=== PATIENT | female | born 1990 | race Two or more races ===

== ENCOUNTER 2017-05-16 21:19 | Emergency (ER) | payer OTHER ==
[2017-05-16 21:30] VITALS: BP 130/84; PULSE 89; TEMP 98.4; BMI 31.3
--- NOTE | 2017-05-16 22:46 | PDOC ---
History of Present Illness - General Chief Complaint: Pain Stated Complaint: CHEST PAIN Time Seen by Provider: 05/16/17 21:52 History Source: Patient Exam Limitations: No Limitations - History of Present Illness Initial Comments: This is a 26 yo female with h/o 10 days ago with subsequent clinically diagnosed endometritis and 4-days stay in the hospital who presents with RUQ pain and SOB. She notes 3 days of worsening sharp, stabbing right upper abdominal pain which has been radiating to her back today. The pain is currently 6/10 while sitting up or standing, but it worsens to 10/10 while laying down flat. She could not sleep tonight whether flat on her back of laying on her side. She denies any recent nausea, vomiting, diarrhea, constipation, cough, sore throat, painful urination, headache, vision changes, back pain, numbness, tingling, focal weakness, or other recent symptoms of illness. She was released from the hospital (from her with infection) on Thursday. Prior to that, she had been taking Percocet. For the past three days , she has been taking Tylenol for the RUQ pain. For the first two days of symptoms, she was taking 1200 mg Tylenol every 4 hours (including throughout the night). Then this morning, she began taking 1200 mg every 6 hours instead. Past History - Past Medical History Allergies/Adverse Reactions: Allergies Allergy/AdvReac Type Severity Reaction Status Date / Time No Known Allergies Allergy Verified 05/16/17 21:30 Home Medications: Ambulatory Orders Acetaminophen [Pain Reliever] 1,000 mg PO Q6H PRN #18 tablet 09/10/15 Other medical history: denies - Psycho/Social/Smoking Cessation Hx Anxiety: No Suicidal Ideation: No Smoking History: Never smoked Have you smoked in the past 12 months: No Hx Alcohol Use: No Substance Use Type: None *Physical Exam - Vital Signs Last Vital Signs Temp Pulse Resp BP Pulse Ox 98.4 F 89 18 130/84 99 05/16/17 21:26 05/16/17 21:26 05/16/17 21:26 05/16/17 21:26 05/16/17 21:26 - Physical Exam General Appearance: Yes: Nourished, Appropriately Dressed, Mild Distress, Other (alert and talkative but must stop in the middle of long sentences, states she must catch her breath, sitting up in hospital bed) HEENT: positive: EOMI, Normal Voice, Hearing Grossly Normal. negative: Scleral Icterus (R), Scleral Icterus (L), Nasal Congestion Neck: positive: Trachea midline, Supple. negative: Tender, Rigid Respiratory/Chest: positive: Lungs Clear, Normal Breath Sounds. negative: Respiratory Distress, Crackles, Rhonchi, Stridor, Wheezing Cardiovascular: positive: Regular Rhythm, Regular Rate. negative: Murmur Gastrointestinal/Abdominal: positive: Normal Bowel Sounds, Tender (mild RUQ tenderness to palpation without Shultz's sign, no tenderness to McBurney's point ), Soft, Other (Unable to tolerate laying flat on back for abdominal exam (can' t breath)). negative: Organomegaly, Pulsatile Mass, Guarding Musculoskeletal: positive: Normal Inspection. negative: Decreased Range of Motion, Vertebral Tenderness Extremity: positive: Normal Capillary Refill, Normal Inspection, Normal Range of Motion. negative: Tender, Cyanosis Integumentary: positive: Normal Color, Dry, Warm. negative: Erythema, Rash, Bruising Neurologic: positive: customer success associate II-XII NML intact, Fully Oriented, Alert, Normal Mood/ Affect, Normal Response, Motor Strength 5/ ED Treatment Course - LABORATORY CBC & Chemistry Diagram: 05/16/17 22:39 05/16/17 22:39 Medical Decision Making - Medical Decision Making 26 yo female POD #10 from with complication of clinically diagnosed endometritis. P/w RUQ/right lower chest pain and SOB worsened laying down flat. Has been taking amoxicillin for endometritis for the past 7 days. Has been taking Tylenol 1200 mg q4h x2d then 1200 mg q6h for the pain. Exam notable for shallow breathing, also Pt unable to tolerate laying flat d/t difficulty breathing. This case in concerning for PE given the patient's hypercoagulable state from recent . Also considered on the ddx are pericarditis, cholecystitis, hepatitis from APAP OD, pneumothorax, RLL PNA. WBC is 17, Hgb is 9, Plt is 689. Patient is signed out to excellent Dr. Brandt for continued care. *DC/Admit/Observation/Transfer Diagnosis at time of Disposition: Abdominal pain Qualifiers: Abdominal location: right upper quadrant Qualified Code(s): R10.11 - Right upper quadrant pain - Attestations Physician Attestion: 05/17/17 00:15 I, Dr. Sherlyn Larry, attest that this document has been prepared under my direction and personally reviewed by me in its entirety. I further attest, that it accurately reflects all work, treatment, procedures and medical decision -making performed by me.
[2017-05-16 23:12] LABS: BASOPHIL 0.4 % (0-2.0); EOSINOPHIL 3.7 % (0-4.5); MCH 28.3 pg (25.7-33.7); MCHC 32.6 g/dl (32.0-36.0); MEAN CELL VOLUME 86.9 fl (80-96); MEAN PLT VOLUME 7.5 fl (7.5-11.1); NEUTROPHILS 72.9 % (42.8-82.8); PLATELET COUNT 689 K/MM3 (134-434); RDW 15.8 % (11.6-15.6)
[2017-05-16 23:16] LABS: URINE APPEARANCE CLEAR; URINE BILIRUBIN NEGATIVE (NEGATIVE); URINE BLOOD 2+ (NEGATIVE); URINE COLOR LTYELLOW; URINE GLUCOSE (UA) NEGATIVE (NEGATIVE); URINE KETONE NEGATIVE (NEGATIVE); URINE NITRITE NEGATIVE (NEGATIVE); URINE PROTEIN NEGATIVE (NEGATIVE); URINE UROBILINOGEN NEGATIVE mg/dL (0.2-1.0)
[2017-05-16 23:19] LABS: URINE LEUK ESTERASE 1+ (NEGATIVE)
[2017-05-16 23:20] LABS: URINE BACTERIA FEW /hpf (NONE SEEN); URINE MUCUS RARE; URINE RBC 11 /hpf (0-3); URINE WBC 25 /hpf (3-5)
[2017-05-16 23:28] LABS: INR 1.1 (0.82-1.09); PROTHROMBIN TIME (PATIENT) 12.1 SEC (9.98-11.88)
[2017-05-16 23:40] LABS: ALBUMIN 2.1 g/dl (3.4-5.0); ANION GAP 8 (8-16); BILIRUBIN,TOTAL 0.5 mg/dL (0.2-1.0); CALCIUM 8.6 mg/dL (8.5-10.1); CO2 25 mmol/L (21-32); CREATININE 0.8 mg/dL (0.55-1.02); GLUCOSE,RANDOM 82 mg/dL (74-106); SGOT/AST 32 U/L (15-37); SGPT/ALT 21 U/L (12-78); TOT PROT 6.8 g/dl (6.4-8.2)
[2017-05-16 23:41] LABS: ALK PHOS 175 U/L (45-117)
[2017-05-17] MEDS ORDERED: KETOROLAC TROMETHAMINE 30 MG/1 ML VIAL IVPUSH ONE (00:15)
[2017-05-17] MEDS ORDERED: KETOROLAC TROMETHAMINE 30 MG/1 ML VIAL ONE (00:18)
--- NOTE | 2017-05-17 00:49 | PDOC ---
*Physical Exam - Vital Signs Last Vital Signs Temp Pulse Resp BP Pulse Ox 98.4 F 89 18 130/84 99 05/16/17 21:26 05/16/17 21:26 05/16/17 21:26 05/16/17 21:26 05/16/17 21:26 ED Treatment Course - LABORATORY CBC & Chemistry Diagram: 05/16/17 22:39 05/16/17 22:39 - ADDITIONAL ORDERS Additional order review: Laboratory Results 05/16/17 05/16/17 05/16/17 22:39 22:39 22:19 INR 1.10 Sodium 140 Potassium 4.5 Chloride 107 Carbon Dioxide 25 Anion Gap 8 BUN 12 Creatinine 0.8 Creat Clearance w eGFR > 60 Random Glucose 82 Calcium 8.6 Total Bilirubin 0.5 AST 32 ALT 21 Alkaline Phosphatase 175 H Total Protein 6.8 Albumin 2.1 L Urine Color Ltyellow Urine Appearance Clear Urine pH 5.0 Urine Protein Negative Urine Glucose (UA) Negative Urine Ketones Negative Urine Blood 2+ H Urine Nitrite Negative Urine Bilirubin Negative Urine Urobilinogen Negative Ur Leukocyte Esterase 1+ H D Urine RBC 11 Urine WBC 25 Ur Epithelial Cells Rare Urine Bacteria Few Urine Mucus Rare Urine HCG, Qual Positive 05/16/17 22:39 RBC 3.19 L D MCV 86.9 MCHC 32.6 RDW 15.8 H D MPV 7.5 Neutrophils % 72.9 D Lymphocytes % 16.9 D Monocytes % 6.1 Eosinophils % 3.7 D Basophils % 0.4 - Medications Given in the ED: ED Medications Discontinued Medications Generic Name Dose Route Start Last Admin Trade Name Freisaiah PRN Reason Stop Dose Admin Ketorolac Tromethamine 30 mg 05/17/17 00:15 05/17/17 00:26 Toradol Injection - IVPUSH 05/17/17 00:16 30 mg ONCE ONE Administration Medical Decision Making - Medical Decision Making 05/17/17 00:[address] Porras. Current plan is to F/U RUQ pain w/ ultrasound and possible CTA if ultrasound negative. Also F/U on acetaminophen level. 05/17/17 01:38 Ultrasound negative for any pathology per US. 05/17/17 01:39 Acetaminophen level <2. 05/17/17 03:19 CTA negative for PE but showed some hydronephrosis of the L kidney. 05/17/17 04:16 Suspect symptoms are a combination of hydronephrosis, urinary tract infection, and complications. Giving 2mg morphine and hydrating w/ 1L saline. Will repeat cbc at 0530 - if white count has come down will discharge to home with macrobid (3 days) for home treatment. 05/17/17 05:23 05/17/17 05:28 05/17/17 05:59 Patient labs trending towards normal, will discharge to home with instructions to return as needed. *DC/Admit/Observation/Transfer Diagnosis at time of Disposition: Shortness of breath - Discharge Dispostion Disposition: HOME - Referrals Referrals: Clary Begum [Primary Care Provider] - - Patient Instructions Additional Instructions: Please return if your pain symptoms returns or increases. Take antibiotics as directed until completion of course. - Post Discharge Activity - Attestations Physician Attestion: 05/17/17 01:38 I, Dr. Rikki Chambers, attest that this document has been prepared under my direction and personally reviewed by me in its entirety. I further attest, that it accurately reflects all work, treatment, procedures and medical decision -making performed by me.
--- NOTE | 2017-05-17 02:05 | PDOC ---
Attending Attestation - Resident Resident Name: Sherlyn Larry - ED Attending Attestation I have performed the following: I have examined & evaluated the patient, The case was reviewed & discussed with the resident, I agree w/resident's findings & plan, Exceptions are as noted - HPI HPI: 05/17/17 02:04 26-year-old female, 8 days post presents to the ER with atraumatic, pleuritic right-sided chest wall and right upper quadrant pain with difficulty breathing, which is exacerbating 1 supine and improved when sitting forward. - Physicial Exam PE: 05/17/17 02:04 In the ER, patient is awake and alert, hemodynamically stable, afebrile. Lungs are clear, there is mild to moderate right upper quadrant and right costal tenderness to palpation reproducing the patient's symptoms. Heart exam reveals no evidence of pericardial friction rub, there are no murmurs or gallops. There is no lower extremity edema. - Medical Decision Making 05/17/17 02:05 Patient is a 26-year-old female, 8 days post who presents with pleuritic right-sided chest wall pain. Patient is at high risk for PE. Chest x- ray reveals no evidence of infiltrate or effusion. EKG shows no evidence of acute ischemia or right sided heart strain. We'll administer Toradol. Will obtain CTA to rule out PE. Will reassess.
[2017-05-17] MEDS ORDERED: SODIUM CHLORIDE 0.9% 500 ML INFUS.BAG IV ONE (03:55)
[2017-05-17] MEDS ORDERED: SODIUM CHLORIDE 1,000 ML IV STA (04:15)
[2017-05-17] MEDS ORDERED: morphine CARPU-JECT 2 MG/1 ML DISP.SYRIN IVPUSH ONE (04:15)
[2017-05-17] MEDS ORDERED: morphine CARPU-JECT 4 MG/1 ML DISP.SYRIN ONE (04:19)
[2017-05-17 05:47] LABS: EOSINOPHIL 3.7 % (0-4.5); MCH 28.1 pg (25.7-33.7); MCHC 32.6 g/dl (32.0-36.0); MEAN CELL VOLUME 86.1 fl (80-96); MEAN PLT VOLUME 7.4 fl (7.5-11.1); NEUTROPHILS 73.2 % (42.8-82.8); PLATELET COUNT 667 K/MM3 (134-434); RDW 15.7 % (11.6-15.6); WHITE BLOOD COUNT 16.3 K/mm3 (4.0-10.0)
--- NOTE | 2017-05-17 06:13 | PDOC ---
Attending Attestation - Resident Resident Name: Rikki Chambers - HPI HPI: 05/17/17 06:01 Pt had a c section 10 days ago. The c section was prolonged and pt thinks perhaps it was a complicated surgery. Pt also states that she had a great deal of pain after the c section that she controlled with motrin and narcotics, which didn't help her. She finally switched to regular Tylenol and got some relief. But 2 days ago pt started having flank pain, then upper back pain and then SOB. She came to the ER for eval. SHe was ruled out or PE but the day/evening doctor and resident in the ER. Additionally pt reports that she was diagnosed with endometritis last week and she was admitted and treated with IV abx for 1 day in the hospital, and then sent home with amoxil TID. She has 3 pills left. Yet now she has leukocytes in her urine as well as some bacteria and WBC and RBC. She will be treated with 3 days of nitrofuantoin after the amoxil course is done. Pt has no flank pain at this time. Though slight possible hydronephrosis was seen on the lung CT scan, pt has normal BUN/Cr and normal physical exam (no fever and no flank pain) so we will not pursue further visulaization of her kidneys with a renal CT scan or renal US. Pt is stable for discharge home, as her CT scan is normal. Labs normal. EXCEPT FOR WBC 17 and PLT 600+ CXR normal. Pt's exam is normal, Her labs were repeated and they are trending downward. Pt is worried that she is having pains on and off throughout her body, however, she is afebrile and she appears well, and she has no pain at this time. She was reassured and asked to return if she feels worse. WBC#2 is trending downward, as is her plt count. Pt has no pain at this time. - Physicial Exam PE: 05/17/17 06:13 normal exam at this time. - Medical Decision Making 05/17/17 06:13 Follow with fur examiner; return for worsening fever.
--- NOTE | 2017-05-18 12:22 | EKG ---
Test Reason : Blood Pressure : / mmHG Vent. Rate : 092 BPM Atrial Rate : 092 BPM P-R Int : 130 ms QRS Dur : 074 ms QT Int : 332 ms P-R-T Axes : 022 029 022 degrees QTc Int : 410 ms NORMAL SINUS RHYTHM POOR R WAVE PROGRESSION ABNORMAL ECG NO PREVIOUS ECGS AVAILABLE Confirmed by RIK SIMONS MD ([id number]) on 05/18/2017 12:21:56 PM Referred By: Confirmed By:RIK SIMONS MD
== END 2017-05-17 06:08 | disposition home or self-care (01) ==
LOC: JER 21:19
DX: R07.89 Other chest pain (principal)
CPT/HCPCS: 36415; 71010-TC; 71275-TC; 76705-TC; 80053; 80307; 81003; 81015; 84703; 85025; 85610; 87086; 93005; 93010; 99283-25